=== PATIENT | male | born 1955 ===

== ENCOUNTER 2023-08-12 07:15 | Inpatient (IN) | payer OTHER ==
[~2023-08-12] VITALS: Ht 160 cm; Wt 59.0 kg
[2023-08-12 08:34] LABS: HEMATOCRIT 43.2 % (39.0-48.0); HEMOGLOBIN 14.8 g/dL (13-16.00); MEAN CELL VOLUME 89.6 fL (80.0-100.00); MEAN CORPUSCULAR HEMOGLOBIN 30.7 pg (27.00-32.0); MEAN CORPUSCULAR HGB CONC 34.3 g/dl (32.0-36.0); PLATELET COUNT 139 K/uL (150-450); RED BLOOD COUNT 4.82 M/uL (4.00-6.00); RED CELL DISTRIBUTION WIDTH 13.6 % (11.5-14.5)
[2023-08-12 08:44] LABS: URINE APPEARANCE Clear; URINE BILIRRUBIN Negative (NEGATIVE); URINE BLOOD Negative; URINE COLOR Yellow; URINE GLUCOSE Negative (NEGATIVE); URINE LEUKOCYTE Negative; URINE NITRATE Negative; URINE PROTEIN Negative (NEGATIVE)
[2023-08-12 08:48] LABS: URINE BACTERIA 6.2 uL (0.0-1933); URINE RBC 2.5 uL (0.0-20.8); URINE WBC 2.3 uL (0.0-23.2)
[2023-08-12 08:50] LABS: URINE EPITHELIAL CELLS 1.2 uL (0.0-38.8)
[2023-08-12] MEDS ORDERED: TENORMIN50 M1 PO (09:00)
[2023-08-12] MEDS ORDERED: COZAAR25 MG PO (09:00)
[2023-08-12 09:09] LABS: INR 0.98; PARTIAL THROMBOPLASTIN TIME 28.4 SECONDS (22.0-34.0); PROTHROMBIN TIME 10.3 SECONDS (9.0-11.5)
[2023-08-12 09:29] LABS: CREATININE SERUM 1.17 mg/dL (0.70-1.30); GFR 62.56; POTASSIUM 4.26 mEq/L (3.5-5.1)
[2023-08-20] MEDS ORDERED: AMLODIPINE BESY10 MG (07:46)
[2023-08-20] MEDS ORDERED: LOSARTAN-HCTZ1 EAC2 (07:46)
[2023-08-20] MEDS ORDERED: GABAPENTIN600 MG (07:46)
[2023-08-21 07:31] LABS: HEMATOCRIT 33.6 % (39.0-48.0); HEMOGLOBIN 11.2 g/dL (13-16.00); MEAN CELL VOLUME 91.5 fL (80.0-100.00); MEAN CORPUSCULAR HEMOGLOBIN 30.6 pg (27.00-32.0); MEAN CORPUSCULAR HGB CONC 33.4 g/dl (32.0-36.0); RED BLOOD COUNT 3.67 M/uL (4.00-6.00); RED CELL DISTRIBUTION WIDTH 13.2 % (11.5-14.5)
[2023-08-21 07:36] LABS: PLATELET COUNT 91 K/uL (150-450)
[2023-08-21 07:53] LABS: ALBUMIN 2.6 gm/dL (3.4-5.0); CALCIUM 8.4 mg/dL (8.5-10.1); CREATININE SERUM 1.07 mg/dL (0.70-1.30); GFR 69.36; PHOSPHOROUS 3.7 mg/dL (2.5-4.9); POTASSIUM 4.61 mEq/L (3.5-5.1)
[2023-08-22 07:36] LABS: HEMATOCRIT 31.8 % (39.0-48.0); HEMOGLOBIN 10.9 g/dL (13-16.00); MEAN CORPUSCULAR HEMOGLOBIN 30.8 pg (27.00-32.0); MEAN CORPUSCULAR HGB CONC 34.2 g/dl (32.0-36.0); RED BLOOD COUNT 3.53 M/uL (4.00-6.00); RED CELL DISTRIBUTION WIDTH 13.7 % (11.5-14.5)
[2023-08-22 07:39] LABS: PLATELET COUNT 99 K/uL (150-450)
== END 2023-08-22 10:17 | disposition home or self-care (01) | DRG 708 ==
LOC: O/R 08-20 05:06 → SURG 08-20 07:00 → SURH 08-20 17:23
PROVIDERS: ADMIT Urology; ATTEND Urology
PROC: 8E0W4CZ Robotic Assisted Procedure of Trunk Region, Percutaneous Endoscopic Approach (ICD-10-PCS; 2023-08-20)
PROC: 0VT04ZZ Resection of Prostate, Percutaneous Endoscopic Approach (ICD-10-PCS; principal; 2023-08-20 07:00)
DX: C61 Malignant neoplasm of prostate (principal); I10 Essential (primary) hypertension